=== PATIENT | female | born 1970 | race Caucasian/White ===

== ENCOUNTER 2024-08-10 07:53 | Day surgery (SDC) | payer OTHER, SELFPAY ==
[2024-08-06 15:04] VITALS: BMI 28.8
--- NOTE | 2024-08-07 10:32 | P.CONAN_ITS ---
Documented by User: Pratima Doe NP 08/07/24 10:32 HPI - Anesthesia Eval Consult details Narrative: 53yo F for Colonoscopy [facility] Past Medical History Medical History Melanoma Colitis Hiatal hernia GERD (gastroesophageal reflux disease) Surgical History Surgical History History of eye surgery Hx of local excision of skin lesion History of esophagogastroduodenoscopy (EGD) H/O colonoscopy Social History Social History Patient Tobacco Use Status: Former Tobacco user Use of substances other than those prescribed or required for medical reasons: No Are you DNR?: No Advance Directives: No Advance Directives Information Provided: Yes Nutrition Risks: No Nutritional Risk Meds Allergies Allergy/AdvReac Type Severity Reaction Status Date / Time Penicillins [PCN] Allergy Severe HIVES Verified 08/10/24 08:41 Sulfa (Sulfonamide Allergy Severe Nausea Verified 08/10/24 08:41 Antibiotics) Home Medications ?Medication ?Instructions ?Recorded ?Confirmed ?Last Taken ?Type multivitamin 1 tab PO DAILY 08/06/24 08/06/24 Unknown History omeprazole 20 mg capsule,delayed 20 mg PO DAILY 08/06/24 08/06/24 Unknown History release amitriptyline 10 mg tablet 10 mg PO BEDTIME 08/10/24 08/10/24 Unknown History progesterone 08/10/24 08/10/24 Unknown History valacyclovir 500 mg tablet 500 mg PO DAILY 08/10/24 08/10/24 Unknown History Exam Height,Weight and Vital Signs: Height 5 ft 4 in Weight 76.204 kg Assessment and Plan Assessment Anesthesia Assessment: Chart Reviewed Documented by User: Majo Schuler MD 08/10/24 09:49 [facility] Past Medical History Medical History Melanoma Colitis Hiatal hernia GERD (gastroesophageal reflux disease) Family History Family history of problems with anesthesia: No Surgical History Surgical History History of eye surgery Hx of local excision of skin lesion History of esophagogastroduodenoscopy (EGD) H/O colonoscopy History of Problems with Anesthesia: No Social History Social History Patient Tobacco Use Status: Former Tobacco user Use of substances other than those prescribed or required for medical reasons: No Are you DNR?: No Advance Directives: No Advance Directives Information Provided: Yes Nutrition Risks: No Nutritional Risk Meds Allergies Allergy/AdvReac Type Severity Reaction Status Date / Time Penicillins [PCN] Allergy Severe HIVES Verified 08/10/24 08:41 Sulfa (Sulfonamide Allergy Severe Nausea Verified 08/10/24 08:41 Antibiotics) Home Medications ?Medication ?Instructions ?Recorded ?Confirmed ?Last Taken ?Type multivitamin 1 tab PO DAILY 08/06/24 08/06/24 Unknown History omeprazole 20 mg capsule,delayed 20 mg PO DAILY 08/06/24 08/06/24 Unknown History release amitriptyline 10 mg tablet 10 mg PO BEDTIME 08/10/24 08/10/24 Unknown History progesterone 08/10/24 08/10/24 Unknown History valacyclovir 500 mg tablet 500 mg PO DAILY 08/10/24 08/10/24 Unknown History Exam Height,Weight and Vital Signs: Height 5 ft 4 in Weight 76.204 kg Vital Signs Temp Pulse Resp BP Pulse Ox O2 Del Method 08/10/24 09:05 98.8 F 72 16 145/87 H 98 Room Air Pertinent Lab Results Pertinent Lab Results: Lab Results 08/10/24 Range/Units 08:31 Urine Test NEGATIVE (NEGATIVE) Airway Mallampati Class: II TM Dist: >3cm Neck ROM: Full Loose/Missing/Broken Teeth: Yes (Missing molars. Denies broken or loose teeth ) Heart: RRR Lungs: CTAB Assessment and Plan Assessment Anesthesia Assessment: Anesthesia Plan Discussed and Chart Reviewed Final Anesthetic Review Family History of Problems with Anesthesia: No History of Problems with Anesthesia: No NPO: Yes ASA Class: II Final Preanesthetic Review: No Changes in Pt Med Stat, Meds/Allgs Chart Reviewed, Consent Obtained/Reviewed and Anes Risks/Benef Reviewed Patient Risk: Low Procedure Risk: Low Assessment/Block/Sedation in SS: Assess/Block/Sedation-SS Anesthetic Plan Anesthetic Plan: TIVA Disposition: Standard PACU
--- OUTSIDE RECORDS SUMMARY | 2024-08-10 07:57 | XMS_ITS | Patient Health Record ---
Author Organization [facility] Address [address] [place] [address] Care Team Providers Care Associate Marketing Manager Name Role Phone Monique Orellana N.P. Primary Care Provider Ruben Pickering Unavailable [phone] ALLERGIES Allergen (clinical drug ingredient) Drug/Non Drug Allergy documented on EMR Reaction Allergy Type Onset Date Status Sulfa Unknown Drug Allergy Active Penicillin Unknown Drug Allergy Active REASON FOR REFERRAL No Information MEDICATIONS Medication SIG (Take, Route, Fr equency, Duration) Notes Start Date End Date Status Omeprazole 20 MG TAKE 1 CAPSULE BY [facility] ONCE A DAY FOR HEARTBURN AND REFLUX for 90 Active Multi Vitamin - 1 tablet Orally Once a day for 30 day(s) Active IMMUNIZATIONS Vaccine Route Administration Date Status Comme nts Influenza Unknown 04/17/2023 Administered SOCIAL HISTORY Sex Assigned At : Social History Observation Description Sex Assigned At Unknown PROBLEMS Problem Type ICD Code Onset Dates Problem Status W/U Status Risk SNOMED Code Notes Problem Encounter for screening for malignant neoplasm of colon (Z12.11) Active confirmed 954235411 Problem Gastroesophageal reflux disease without esophagitis (K21.9) Active confirmed 408097684 Problem Preprocedural examination (Z01.818) Active confirmed 735108015709138 Problem Family history of colon cancer (Z80.0) Active confirmed 647186231 Problem Rectal bleed (K62.5) Active confirmed Hemorrhage of rectum and anus (889599265) Problem Abnormal CT scan, colon (R93.3) Active confirmed Computed tomography result abnormal (161540731) Problem Acute colitis (K52.9) Active confirmed Non-infective enteritis and colitis (696154238) Problem Ischemic colitis (K55.9) Active confirmed Ischemic coliti s (09950460) VITAL SIGNS Temperature 98.6 degrees Fahrenheit 04/15/2024 Blood pressure diastolic 00 mm Hg 04/15/2024 Height 64 in 04/15/2024 Blood pressure systolic 000 mm Hg 04/15/2024 Weight 168 lb 4 oz lbs 04/15/2024 BMI 28.88 kg/m2 04/15/2024 Encounters Encounter Location Date Provider Diagnosis [facility] [place] [address] [place] [phone] 08/10/2024 Ruben Nieves [facility] [address] [place] [phone] 07/24/2024 Ruben Nieves [facility] [address] [place] [phone] 04/15/2024 Ruben Nieves Encounter for screening for malignant neoplasm of colon Z12.11 ; Ischemic colitis K55.9 ; Family history of colon cancer Z80.0 ; Rectal bleed K62.5 ; Abnormal CT scan, colon R93.3 and Acute colitis K52.9 [facility] [address] [place] [phone] 04/07/2024 Ruben Nieves Rectal bleed K62.[address] scan, colon R93.3 ASSESSMENTS Encounter Date Diagnosis Assessment Notes Treatment Notes Treatment Clinical Notes 04/15/2024 Encounter for screening for malignant neoplasm of colon (ICD-10 - Z12.11) Ask your PCP about an Echocardiogram to check the heart for any small clots(Although I think that's unlikely) that might cause an episode of ischemic colitis 04/15/2024 Ischemic colitis (ICD-10 - K55.9) 04/07/2024 Rectal bleed (ICD-10 - K62.5) 04/07/[address] scan, colon (ICD-10 - R93.3) 04/15/2024 Family history of colon cancer (ICD-10 - Z80.0) 04/15/2024 Rectal bleed (ICD-10 - K62.5) 04/15/[address] scan, colon (ICD-10 - R93.3) 04/15/2024 Acute colitis (ICD-10 - K52.9) PLAN OF TREATMENT Pending Test Test Name Order Date CRP 04/07/2024 CBC w DIFF 04/07/2024 SED RATE (ESR) 04/07/2024 STOOL WBC 04/07/2024 C DIFFICILE RFLX PCR 04/07/2024 Calprotectin, Fecal 04/07/2024 GI PANEL 04/07/2024 Future Test Test Name Order Date COLONOSCOPY 10/03/2012 COLONOSCOPY 10/24/2018 COLONOSCOPY 04/15/2024 Next Appt Details Provider Name:Ruben Che Lizbeth , 08/10/2024 09:20:00 AM, [address] [place] [address] , [place], [place], [phone], Insurance Providers Payer Name Payer Address Payer Phone Subscriber Number Group Number Insured Name Patient Relationship to Insured Coverage Start Date Coverage End Date [facility] [address] [place] [phone] [id number] MIR CHERY Self - patient is the insured MEDICAL (GENERAL) HISTORY Medical History History ICD Code GERD-EGD in 2002 and 10/2013 with a small HH, but no sig. esophagitis nor Lopez's Denies CO,DM,CVA,Lung disease,renal dise ase Neg. colonoscopy in 10/2007 e xcept for a hyperplastic polyp and internal hemorrhoids Neg. colonoscopy in 10/2013 Melanoma removed from right shoul abhijeet Acute colitis 03/2024 CT with involvemen t of the descending colon Neg. screening colonoscopy in 05/2019 Surgical History Surgery Date(Month/Year)
--- OUTSIDE RECORDS SUMMARY | 2024-08-10 07:57 | XMS_ITS | Continuity of Care Document ---
Author Organization [facility] Address [address] [place] [address]- Care Team Providers Care Burglar Alarm Assembler Name Role Phone Esteban LAWSON, Monique Berrios Primary Care Physician [phone] Encounter [facility] ACCT R [id number] Date(s): 07/09/24 - 07/16/24 [facility] [address] [place] [address]- Encounter Diagnosis Annual physical exam(Discharge Diagnosis) - 07/09/24 HTN (hypertension)(Discharge Diagnosis) - 07/09/24 Insomnia(Discharge Diagnosis) - 07/09/24 Attending Physician: Not on Staff, Attending MD Encounter Type: Office Visit Allergies, Adverse Reactions, Alerts Substance Criticality Severity Reaction Reaction Severity Status penicillin Active sulfamethoxazole Act ly Immunizations Given and Recorded Vaccine Date Status Refusal Reason influenza virus vaccine, inactivated 1 06/21/23 Gi fabiola influenza virus vaccine, inactivated 04/20/22 Alejandro rded influenza virus vaccine, inactivated 04/01/20 Alejandro rded influenza virus vaccine, inactivated 04/13/19 Alejandro rded influenza virus vaccine, inactivated 04/10/18 Alejandro rded influenza virus vaccine, inactivated 2 03/29/17 Gi fabiola influenza virus vaccine, inactivated 3 05/10/16 Re corded influenza virus vaccine, inactivated 4 04/14/14 Gi fabiola influenza virus vaccine, inactivated 07/26/05 Alejandro rded Influenza Virus Vaccine (oldterm) 06/20/21 Recorde d Influenza Virus Vaccine (oldterm) 5 04/05/20 Recor ded Influenza Virus Vaccine (oldterm) 04/14/19 Recorde d SARS-CoV-2 (COVID-19) mRNA BNT-162b2 vac 08/12/20 Recorded SARS-CoV-2 (COVID-19) mRNA BNT-162b2 vac 07/22/20 Recorded tetanus/diphtheria/pertussis, acel(Tdap) 12/06/14 Given 1Result Comment: questionaire neg 2Result Comment: [03/29/2017] [facility] [id number] 3Result Comment: [05/18/2016] ALEXANDRU 4Admin Note: [facility] Jonathan 5Result Comment: influenza [facility] Medications Multivitamin Daily, 0 Refills, Maintenance, 02/01/17 7:34:47 AM EDT Start Date: 02/01/17 Status: Ordered Repeat number: 1 omeprazole 20 mg oral enteric coated capsule 1 capsule = 20 mg, By Mouth, Daily, # 30 capsule, 11 Refills, Maintenance, 12/03/13 9:26:35 AM EDT, EC Capsule Start Date: 12/03/13 Stop Date: 11/28/14 Status: Ordered Quantity: 30.0 Unit: capsule Repeat number: 12 Problem List Condition Confirmation Course Effective Dates Status Health St atus Informant Anxiety Confirmed Active Hiatal hernia Confirmed Active HTN (hypertension) Confirmed Active Insomnia Confirmed Active Melanoma in situ Confirmed Active Diagnosis Diagnosis Type Effective Dates Health Status Cl inical Service Informant Annual physical exam Discharge Diagnosis 07/09/24 HTN (hypertension) Discharge Diagnosis 07/09/24 Insomnia Discharge Diagnosis 07/09/24 Vital Signs Most recent to oldest [Reference Range]: 1 Height 161.60 cm (07/09/24 9:42 AM) Weight 75.9 kg (07/09/24 9:42 AM) Oxygen Saturation [94-100 %] 98 % (07/09/24 9:42 AM) Pulse Rate [55-90 bpm] 78 bpm (07/09/24 9:42 AM) Body Mass Index [18.5-24.99 kg/m2] 29.06 kg/m2 *H* (07/09/24 9:42 AM) Blood Pressure [90-138/55-84 mm Hg] 126/ 85mm Hg (07/09/24 9:42 AM) Blood pressure sites Arm, right (07/09/24 9:42 AM) Weight Obtained Via Standing scale (07/09/24 9:42 AM) Social History Social History Type Response Smoking Status Never smoker entered on: 08/10/15 Sex Sex Representation Female (finding) Note * Mari Preston: PERFORM Event Display: Patient Education/Instruction Authored Date: [id number] Ambulatory Adult Visit Summary [facility] [address], [place] [phone] Name: MIR CHERY : 1970?? Visit: 07/09/2024 09:39?? Ambulatory Visit Instructions ?? Your Care Team Primary Care Provider Esteban LAWSON, Monique Berrios? This Visit Provider Monique Orellana NP Your Diagnosis Annual physical exam Vitamin D deficiency Fatigue Screening for hyperlipidemia HTN (hypertension) Insomnia Vitals Signs Pulse Rate: 78 bpm Height: 161.6 cm Systolic Blood Pressure: 126 mm Hg Weight: 75.9 kg Diastolic Blood Pressure:??85 mm Hg??High Body Mass Index:??29.06 kg/m2??High Oxygen Saturation: 98 % Body surface area: 1.85 What to do next Follow-Up Appointments Follow Up with??Esteban LAWSON, Monique Berrios When:??In 3 months Where: [address] [place] [address]- Future Orders Vitamin D 25 Hydroxy Level (25 [place] Vitamin D Level) - Routine, Once, 07/09/24 10:11:00 EST, Future Order, [facility], Blood?? Comprehensive Metabolic Panel - Routine, Once, 07/09/24 10:12:00 EST, Future Order, [facility], Blood?? TSH - Routine, Once, 07/09/24 10:12:00 EST, Future Order, [facility], Blood?? CBC w/ Differential - Routine, Once, 07/09/24 10:12:00 EST, Future Order, [facility], Blood?? Lipid Panel - Routine, Once, 07/09/24 10:12:00 EST, Future Order, [facility], Blood?? Medications The list below reflects the information in our records and provided by you today along with any changes made during this visit. Please continue your medications until treatment is completed or stopped by your provider. If this is different from the information you have or there are other questions,please contact the prescribing provider. What How Much When Instructions New Zolpidem (Ambien 5 mg oral tablet) 1 tab(s) Oral Daily at Bedtime Duration: 7 Days Pickup at [facility]/pharmacy #[id number] Unchanged Multivitamin Daily Unchanged Omeprazole (omeprazole 20 mg oral enteric coated capsule) 1 capsule Oral Daily Duration: 30 Days Pharmacy Information [facility]/pharmacy #[id number]: [address] [place], [place] [id number] [phone] Test Performed Below is a partial list of the tests performed during your Visit. You may have had other tests and procedures not included in this list. Please discuss all test results with your provider. 25 OH Vitamin D Level?-- Results Pending -- CBC w/ Differential?-- Results Pending -- Comprehensive Metabolic Panel?-- Results Pending -- Lipid Panel?-- Results Pending -- TSH?-- Results Pending -- Medications and Immunizations Administered Medications Given During Visit No medications given during this visit.?? Allergies (NKA means No Known Allergies) penicillin sulfamethoxazole Common Emergency Awareness Tips IS IT A STROKE? Act FAST and Check for these signs: FACE Does the face look uneven? ARM Does one arm drift down? SPEECH Does their speech sound strange? TIME Call at any sign of stroke ?? Heart Attack Signs Chest discomfort: Most heart attacks involve discomfort in the center of the chest and lasts more than a few minutes, or goes away and comes back. It can feel like uncomfortable pressure, squeezing, fullness or pain. Discomfort in upper body: Symptoms can include pain or discomfort in one or both arms, back, neck, jaw or stomach. Shortness of breath: With or without discomfort. Other signs: Breaking out in a cold sweat, nausea, or lightheaded. Remember, MINUTES DO MATTER. If you experience any of these heart attack warning signs, call to get immediate medical attention! ?? Smoking can increase your chances of developing chronic health problems and can cause harmful effects to other family members in your house. If you smoke, you are strongly encouraged to quit. Please call [facility] at [phone] or [phone] ([phone]) or log in to [email or web address] for referrals to smoking cessation programs. ?? The National Suicide Prevention Hotline is available 21/01 if you or someone you know needs to find a reason to keep living. By calling 7-274-660-ltxs (6302) you'll be connected to a skilled, trained counselor at a crisis center in your area. [facility] Health Portal You can view and manage your care through the patient portal or by using a health care fitz of your choosing. [employer] is a website that allows you to securely view your medical information including your hospital discharge summary, office visit summaries, medications and follow-up visits. You can also request appointments, renew medications, and request access to your medical information using a health care fitz of your choosing, or just ask a question. You can enroll at [email or web address] or register during your next office visit. [facility], in keeping with [facility] guidance, no longer requires face masks for staff, patientsor visitors in most situations. Similiar to time spent indoors at other locations, there is the chance that you were exposed to repiratory viruses during your time with us (such as flu or COVID-19). If you develop symptoms concerning for a viral respiratory infection, please seek testing (and treatment if indicated) from your medical provider or home test kit. ?? Disclaimer: The information provided is of a general nature and is intended to be used in conjunction with the recommendations and advice of your health care practitioner. Every effort has been made to ensure that the information provided is accurate and complete at the time it is provided to you however, as your needs change, or, as new information becomes available, different or additional instructions may be required. ?? If you have questions, please consult with your primary care provider or pharmacist, as appropriate. This information is not intended to serve as substitution for assessment and evaluation by a qualified health care provider. If you do not have a primary care provider, you may find a [facility] provider by calling [facility] Link at [phone]. Patient Care team information Care Team Personnel Name: Monique Orellana NP Position: [facility] PCO Associate Professional Member Role: PCP Address: [address] [place] [address]- Telecom: Care Team Related Persons Name: BEATRICE BARLOW Insurance Providers Guarantor name: MIREMI ANDUJARINE Count Includes [facility] Information #: 1 Payer: [facility] Member Number: [id number] Policy Number: NA Group Number: [id number] Health Plan Information #: 2 Payer: [facility] Member Number: [id number] Policy Number: NA Group Number: NA
--- OUTSIDE RECORDS SUMMARY | 2024-08-10 07:57 | XMS_ITS ---
Author Organization [facility] Address [address] [place] [address] Care Team Providers Care Dining Room Captain Name Role Phone Monique Orellana N.P. Primary Care Provider Unava ilable Ruben Nieves Unavailable [phone] REASON FOR VISIT screening,fam hx colon ca Encounters Encounter Location Date Provider Diagnosis [facility] [place] [address] [place] [phone] 08/10/2024 Ruben Nieves PLAN OF TREATMENT Next Appt Details Provider Name:Ruben Nieves , 08/10/2024 09:20:00 AM, [address] [place] [address] , [place], [place], [phone],
--- OUTSIDE RECORDS SUMMARY | 2024-08-10 07:57 | XMS_ITS | Continuity of Care Document ---
Author Organization [facility] Address [address] [place] [address]- Care Team Providers Care Cloth Tester Quality Name Role Phone Esteban LAWSON, Moniuqe Berrios Primary Care Physician [place] [facility] [place] 07/10/24 - 08/09/24 [facility] Adult [address] [place] [address]- Encounter Type: Triage Allergies, Adverse Reactions, Alerts Substance Criticality Severity [...] mRNA BNT-162b2 vac 07/22/20 Recorded tetanus/diphtheria/pertussis, acel(Tdap) 6/8/15 Given 1Result Comment: questionaire neg 2Result Comment: [03/29/2017] [facility][note 3] [id number] 3Result Comment: [05/18/2016] ALEXANDRU 4Admin Note: Fluarix [...] Confirmed Active Melanoma in situ Confirmed Active Social History Social History Type Response Smoking Status Never smoker entered on: 08/10/15 Sex Sex Representation Female (finding) Patient Care team information Care Team Personnel Name: Esteban LAWSON, Monique Berrios Position: [facility] PCO Associate Professional Member Role: PCP Address: [address] [place] [address]- Telecom: Care Team Related Persons Name: BEATRICE BARLOW Insurance Providers Guarantor name: MIREMI ANDUJARINE [facility] Plan Information #: 1 Payer: [facility] Member Number: NA Policy Number: NA Group Number: NA
--- OUTSIDE RECORDS SUMMARY | 2024-08-10 07:57 | XMS_ITS | Continuity of Care Document ---
Author Organization [facility] Address [address] [place] [address]- Care Team Providers Care Aircraft Parts Assembler Name Role Phone Esteban LAWSON, Monique Berrios Primary Care Physician Encounter [facility] Date(s): 07/08/24 - 08/07/24 [facility] Adult [address] [place] [address]- Encounter Type: Triage Allergies, Adverse Reactions, Alerts [...] 1Result Comment: questionaire neg 2Result Comment: [03/29/2017] [facility] [phone] 3Result Comment: [05/18/2016] ALEXANDRU 4Admin Note: Fluarix [...] Personnel Name: Esteban LAWSON, Monique Berrios Position: [facility] PCO Associate Professional Member Role: PCP Address: [address] [place] [address]- Telecom: Care Team Related Persons Name: BEATRICE BARLOW Insurance Providers Guarantor name: MIREMI ANDUJARINE [facility] Plan Information #: 1 Payer: [facility] Member Number: NA Policy Number: NA Group Number: NA
--- OUTSIDE RECORDS SUMMARY | 2024-08-10 07:57 | XMS_ITS | Continuity of Care Document ---
Author Organization [facility] Address [address] [place] [address]- Care Team Providers Care Life Enrichment Director Name Role Phone Esteban LAWSON, Monique Berrios Primary Care Physician [phone] [id number] Adult [address] [place] [address]- Attending Physician: Esteban LAWSON, Monique Berrios Encounter Type: Pre Office Visit Allergies, Adverse Reactions, Alerts Substance [...] 1Result Comment: questionaire neg 2Result Comment: [03/29/2017] [facility] [phone] 3Result Comment: [05/18/2016] ALEXANDRU 4Admin Note: Fluarix [...] Team Personnel Name: Monique Orellana NP Position: S PCO Associate Professional Member Role: PCP Address: [address] [place] [address]- Telecom: Care Team Related Persons Name: BEATRICE BARLOW Insurance Providers Guarantor name: MIR CHERY Health Plan Information #: 1 Payer: [facility] [employer] Member Number: [id number] Policy Number: NA Group Number: [id number] Health Plan Information #: 2 P[facility] [facility] Member Number: [id number] Policy Number: NA Group Number: NA
--- OUTSIDE RECORDS SUMMARY | 2024-08-10 07:58 | XMS_ITS | Continuity of Care Document ---
Author Organization [facility] [place] [facility] Address [address] [place] [address]- Care Team Providers Care Medical Lab Director Name Role Phone Esteban LAWSON, Monique Berrios Primary Care Physician [phone] Encounter [facility] Date(s): 07/10/24 - 08/09/24 [facility] [place] [address] [place] [address]- Encounter Type: Triage Allergies, Adverse Reactions, Alerts [...] 1Result Comment: questionaire neg 2Result Comment: [03/29/2017] [facility] [id number] 3Result Comment: [05/18/2016] ALEXANDRU 4Admin Note: Fluarix [...] Care Team Personnel Name: Esteban LAWSON, Monique Berriso Position: [facility] PCO Associate Professional Member Role: PCP Address: [address] [place] [phone]- Telecom: Care Team Related Persons Name: BEATRICE BARLOW Insurance Providers Guarantor name: MIREMI ANDUJARINE [facility] Plan Information #: 1 Payer: [facility] Member Number: NA Policy Number: NA Group Number: NA
--- OUTSIDE RECORDS SUMMARY | 2024-08-10 07:58 | XMS_ITS ---
Author Organization [facility] Address [address] [place] [phone] Care Team Providers Care Early Childhood Teacher Assistant Name Role Phone Monique Orellana N.P. Primary Care Provider Ruben Pickering [phone] ALLERGIES Allergen (clinical drug ingredient) Drug/Non Drug Allergy documented on EMR Reaction Allergy Type Onset Date Status Sulfa Unknown Drug Allergy Active Penicillin Unknown Drug Allergy Active REASON FOR VISIT Patient presents today for a f/u from ER MEDICATIONS Medication SIG (Take, Route, Fr equency, Duration) Notes Start Date End Date Status Omeprazole 20 MG TAKE 1 [facility]SULE BY [facility] ONCE A DAY FOR HEARTBURN AND REFLUX for 90 Active Multi Vitamin - 1 tablet Orally Once a day for 30 day(s) Active PROBLEMS Problem Type ICD Code Onset Dates Problem Status W/U Status Risk SNOMED Code Notes Problem Ischemic colitis (K55.9) Active confirmed Ischemic colitis (29676398) Problem Acute colitis (K52.9) Active confirmed Non-infective enteritis and colitis (841656251) VITAL SIGNS BMI 28.88 kg/m2 04/15/2024 Blood pressure systolic 000 mm Hg 04/15/20 24 Blood pressure diastolic 00 mm Hg 024 Height 64 in 04/15/2024 Temperature 98.6 degrees Fahrenheit 04/15/20 24 Weight 168 lb 4 oz lbs 04/15/2024 Encounters Encounter Location Date Provider Diagnosis [facility] [address] [place] [phone] 04/15/2024 Ruben Nieves Encounter for screening for malignant neoplasm of colon Z12.11 ; Ischemic colitis K55.9 ; Family history of colon cancer Z80.0 ; Rectal bleed K62.5 ; Abnormal CT scan, colon R93.3 and Acute colitis K52.9 ASSESSMENTS Encounter Date Diagnosis Assessment Notes Treatment Notes Treatment Clinical Notes 04/15/2024 Encounter for screening for malignant neoplasm of colon (ICD-10 - Z12.11) Ask your PCP about an Echocardiogram to check the heart for any small clots(Although I think that's unlikely) that might cause an episode of ischemic colitis 04/15/2024 Ischemic colitis (ICD-10 - K55.9) 04/15/2024 Family history of colon cancer (ICD-10 - Z80.0) 04/15/2024 Rectal bleed (ICD-10 - K62.5) 04/15/[address] scan, colon (ICD-10 - R93.3) 04/15/2024 Acute colitis (ICD-10 - K52.9) PLAN OF TREATMENT Treatment Notes Assessment Notes Encounter for screening for malignant neoplasm of colon Ask your PCP about an Echocardiogram to check the heart for any small clots(Although I think that's unlikely) that might cause an episode of ischemic colitis Future Test Test Name Order Date COLONOSCOPY 04/15/2024 Next Appt Details Follow Up: prn, Reason: Provider Name:Ruben Nieves , 08/10/2024 09:20:00 AM, [address] [place] [address] , [place], [place], [id number], Progress Notes * Examination Category Sub-Category Detail Notes General Examination GENERAL APPEARANCE: pleasant , well nourished, well developed, in no acute distress EYES: sclera non-icteric NECK/THYROID: no cervical lymphade nopathy, neck supple HEART: S1, S2 normal LUNGS: clear to auscultatio n bilaterally ABDOMEN: normal bowel sounds, no guarding or rigidity, no hepatosplenomegaly, no masses palpable, soft, nontender, nondistended. NEUROLOGIC: alert and oriented SKIN: nonjaundiced, no spi abhijeet angiomata. EXTREMITIES: no edema ORAL CAVITY: mucosa moist
--- OUTSIDE RECORDS SUMMARY | 2024-08-10 07:58 | XMS_ITS ---
Author Organization [facility] Address [address] [place] [address] Care Team Providers Care Model Maker Firearms Name Role Phone Monique Orellana N.P. Primary Care Provider Unava ilable Ruben Nieves Unavailable [phone] REASON FOR VISIT COLON SCREENING Encounters Encounter Location Date Provider Diagnosis [facility] [address] [place] [address] 07/24/2024 Ruben Nieves PLAN OF TREATMENT Next Appt Details Provider Name:Ruben Nieves , 08/10/2024 09:20:00 AM, [address] [facility] , [place], [place], [id number],
--- OUTSIDE RECORDS SUMMARY | 2024-08-10 07:58 | XMS_ITS | Continuity of Care Document ---
Author Organization [facility] Address [address] [place] [address]- Care Team Providers Care Director Of Testing Name Role Phone Esteban LAWSON, Monique Berrios Primary Care Physician [phone] Encounter [facility] [place] [place] Date(s): 07/08/24 - 08/07/24 [facility] Adult [address] [place] [address]- Encounter Type: Triage Allergies, Adverse Reactions, Alerts [...] 1Result Comment: questionaire neg 2Result Comment: [03/29/2017] [facility] [id number] 3Result Comment: [05/18/2016] ALEXANDRU 4Admin Note: Fluarix [...] Personnel Name: Esteban LAWSON, Monique Berrios Position: [facility] PCO Associate Professional Member Role: PCP Address: [address] [place] [phone]- Telecom: Care Team Related Persons Name: BEATRICE BARLOW Insurance Providers Guarantor name: MIREMI ANDUJARINE [facility] Plan Information #: 1 Payer: [facility] Member Number: NA Policy Number: NA Group Number: NA
[2024-08-10 08:32] VITALS: BMI 29.1
[2024-08-10 08:46] LABS: UPreg QC Valid YES; Urine Pregnancy NEGATIVE (NEGATIVE)
[2024-08-10] MEDS: Lactated Ringers 1,000 ML 100 ML IVCONT (09:03)
[2024-08-10 09:05] VITALS: BP 145/87; PULSE 72; RESP 16; TEMP 37.1; O2SAT 98
[2024-08-10 11:05] VITALS: BP 101/77; PULSE 65; RESP 20; TEMP 36.4; O2SAT 98
--- NOTE | 2024-08-10 11:06 | P.BOP_ITS ---
Brief Operative Note Date of Service: 08/10/24 Pre-op diagnosis: Screening Post-op diagnosis: other (Diverticulosis) Procedure: Colonoscopy to the cecum Surgeon: Ruben Nieves MD Anesthesia: MAC Was an Incendiary Powder Mixer used for this Procedure?: No Estimated blood loss (mL): 0 Pathology: none sent Condition: stable Disposition: PACU
[2024-08-10 11:21] VITALS: BP 107/69; PULSE 66; RESP 17; TEMP 36.3; O2SAT 99
--- NOTE | 2024-08-10 20:54 | OP_ITS ---
DATE OF SERVICE: 08/10/2024 SURGEON: Ruben Nieves MD INDICATIONS: The patient presents for evaluation of family history of colorectal cancer and colorectal cancer screening. Full consent obtained from her for this, including risks of bleeding and perforation. PREOPERATIVE DIAGNOSIS: Colorectal cancer screening and family history of colon cancer. POSTOPERATIVE DIAGNOSIS: Colorectal cancer screening and family history of colon cancer, mild sigmoid diverticulosis, internal hemorrhoids. PROCEDURE PERFORMED: Colonoscopy to cecum. ESTIMATED BLOOD LOSS: COMPLICATIONS: ANESTHESIA: Monitored anesthesia care. ASSISTANTS: SPECIMENS: DESCRIPTION OF PROCEDURE: The patient was placed in left lateral decubitus position. The digital rectal exam revealed no abnormalities. The Olympus video pediatric colonoscope was entered into the rectum and advanced easily to the cecum. Once in the cecum, I did identify normal-appearing cecal pouch with appendiceal orifice a normal-appearing ileocecal valve. The entire cecum and ileocecal valve appeared normal. The appendiceal orifice appeared normal. There was transillumination of light deep in the right lower quadrant. The scope was slowly withdrawn assessing all mucosal surfaces carefully. Preparation was excellent. I did not visualize any sign of polyps, colitis, nor angiodysplasia. There was a mild amount of sigmoid diverticulosis. In the rectum, scope was retroflexed visualizing some internal hemorrhoids, but no other pathology. The rectal mucosa appeared normal. The scope was straightened and withdrawn from the patient. She tolerated the procedure well and was returned to the recovery area in stable condition. IMPRESSION: 1. Mild sigmoid diverticulosis. 2. Internal hemorrhoids. PLAN: Given her family history and today's negative exam, I would recommend a followup colonoscopy in 5 years for further screening purposes. She will otherwise see me on a p.r.n. basis. MD MATT Leger/CHELA / [id number]
== END 2024-08-10 12:32 | disposition home or self-care (01) ==
PROVIDERS: PCP Nurse Practitioner Family; Visit Provider Internal Medicine
PROC: 0DJD8ZZ Inspection of Lower Intestinal Tract, Via Natural or Artificial Opening Endoscopic (ICD-10-PCS; CPT 45378; principal; 2024-08-10 09:20)
DX: Z12.11 Encounter for screening for malignant neoplasm of colon (principal); K57.30 Diverticulosis of large intestine without perforation or abscess without bleeding; K64.8 Other hemorrhoids; Z80.0 Family history of malignant neoplasm of digestive organs; K21.9 Gastro-esophageal reflux disease without esophagitis
CPT/HCPCS: 45378; 81025; J2003; J2704